=== PATIENT | male | born 1995 | race Caucasian/White ===

== ENCOUNTER 2018-10-18 17:02 | Emergency (ER) | payer OTHER ==
[~2018-10-18] VITALS: Ht 170.2 cm; Wt 90.9 kg
[2018-10-18] MEDS ORDERED: TOPA1TAB PO (17:13)
[2018-10-18 19:54] LABS: VENOUS BASE EXCESS -0.2 (-2.0-2.0); VENOUS HCO3 26.3 MEQ/L (23.0-27.0); VENOUS PARTIAL PRESSURE CO2 49.9 mmHg (38.0-50.0); VENOUS PARTIAL PRESSURE O2 34.5 mmHg (30.0-50.0); VENOUS STANDARD HCO3 23.4 MEQ/L; VENOUS TOTAL CO2 27.8 MEQ/L (24.0-28.0)
[2018-10-18 19:55] LABS: BASO % 0.5 % (0.0-1.0); EOS # 0.3 10^3/uL (0.0-0.50); EOS % 3.5 % (0.0-3.0); HEMATOCRIT 44.2 % (42.0-52.0); HEMOGLOBIN 14.8 g/dl (13.5-17.5); LYMPH # 1.9 10^3/uL (1.5-6.5); MEAN CORPUSCULAR HEMOGLOBIN 27.6 pg (27.0-33.0); MEAN CORPUSCULAR HGB CONC 33.5 g/dl (32.0-36.5); MEAN CORPUSCULAR VOLUME 82.3 fl (80.0-96.0); MONO # 1.5 10^3/uL (0.0-0.8); NEUTROPHILS # 4.3 10^3/uL (1.8-7.7); NEUTROPHILS % 53.5 % (36.0-66.0); PLATELET COUNT, AUTOMATED 158 10^3/uL (150-450); RED BLOOD COUNT 5.37 10^6/uL (4.30-6.10)
--- NOTE | 2018-10-18 20:06 | REP ---
Clinical: Cough and dyspnea . Comparison: None . Technique: PA and lateral. Findings: The mediastinum and cardiac silhouette are normal. The lung davis are clear and without acute consolidation, effusion, or pneumothorax. The skeletal structures are intact and normal. Impression: 1. No acute cardiopulmonary process. Electronically Signed by Alvarado Baugh MD 10/18/2018 07:58 P
--- NOTE | 2018-10-18 20:07 | ECGEPIP ---
[facility] - ED Test Date: 2018-10-18 Pat Name: FADY FLORES Department: Room: - Gender: Male [employer] Be[employer] Welder: ANJU : 1995 Requested By: MONSTER TORIBIO Order Number: [id number] Reading MD: Roberto Cornell Measurements Intervals [place] Rate: 47 P: 34 DE: 159 QRS: 29 QRSD: 105 T: 32 QT: 472 QTc: 418 Interpretive Statements SINUS BRADYCARDIA WITH SINUS ARRHYTHMIA Comparison tracing not on file Electronically Signed on 10-18-2018 20:07:24 EDT by Roberto Cornell
[2018-10-18 20:59] LABS: BLOOD UREA NITROGEN 13 MG/DL (7-18); CALCIUM LEVEL 9.1 MG/DL (8.5-10.1); CARBON DIOXIDE LEVEL 28 MEQ/L (21-32); CHLORIDE LEVEL 106 MEQ/L (98-107); CPK CREATINE PHOSPHOKINASE 1978 U/L (39-308); GLOMERULAR FILTRATION RATE > 60.0 (>60); GLUCOSE, FASTING 90 MG/DL (70-100); MB/CK RELATIVE INDEX 0.54 (< OR =4); SODIUM LEVEL 143 MEQ/L (136-145); THYROXINE (T4) 8.9 UG/DL (4.5-12.0); TROPONIN I 0.02 NG/ML (< 0.10)
[2018-10-18] MEDS ORDERED: NS 1,000 ML IV ONE ×2 (21:15)
[2018-10-18 22:47] VITALS: BP 140/76
== END 2018-10-18 22:55 | disposition home or self-care (01) ==
LOC: M ED 17:02
DX: R74.8 Abnormal levels of other serum enzymes (principal); R00.1 Bradycardia, unspecified; R51 Headache; Z79.899 Other long term (current) drug therapy; Z88.0 Allergy status to penicillin